=== PATIENT | male | born 1970 | race African-American/Black ===

== ENCOUNTER 2016-06-18 12:41 | Emergency (ER) | payer OTHER ==
--- NOTE | ~2016-06-18 | EKG ---
PATIENT: ROSENDA QUINONES UNIT #: [id number] Ventricular Rate: 88 BPM Atrial Rate: 88 BPM P-R Interval: 170 ms QRS Duration: 96 ms Q-T Interval: 364 ms QTC Calculation(Bezet): 440 ms P [place]: 71 degrees Calculated R [place]: 73 degrees Calculated T [place]: 31 degrees Diagnosis Line: Normal sinus rhythm Diagnosis Line: Moderate voltage criteria for LVH, may be normal Diagnosis Line: variant Diagnosis Line: Borderline ECG Diagnosis Line: When compared with ECG of 20-SEP-2014 22:29, Diagnosis Line: No significant change was found Diagnosis Line: Confirmed by NATALY PHILLIPS MD ([id number]) on Diagnosis Line: 06/18/2016 4:00:08 PM INTERPRETING MD: EARNEST
--- NOTE | ~2016-06-18 | CT16 ---
[facility] A Service of [facility] RADIOLOGY TEXT RESULTS PATIENT: ROSENDA QUINONES LOCATION: [facility] : 66 UNIT #: [id number] AGE: [address]: Matty Cho MD SEX: M ORDER DR: [id number] [facility] [address] [place], [place] [address] [id number] E MR#: [id number] Acc #: [id number] NAME: ROSENDA QUINONES : 1970 SEX: M STUDY DATE/TIME: 06/18/2016 14:41 UNIT: [facility] ROOM: STUDY DESCRIPTION: CT Angio Chest for PE Attending Physician: Matty Cho M.D. Ordering Physician: Matty Cho M.D. Primary Care Physician: [facility], [facility]. MEDICAL IMAGING REPORT This report is preliminary unless electronic signature is present EXAM CT angiogram chest, PE protocol dated 06/18/2016. COMPARISON CT angiogram chest, PE protocol dated 09/14/2014. HISTORY Sharp left lower rib pain with inhalation, started on 06/15/2016. FINDINGS This CT exam was performed with one or more of the following radiation dose reduction techniques: Automatic exposure control, adjustment of mA and/or kV according to patient size, and iterative reconstruction. CT angiogram chest PE protocol was obtained in the axial plane followed by sagittal and coronal reformats, as per the protocol. Three-vessel aortic arch is seen. No evidence of aortic aneurysm or dissection. The main, right-left pulmonary arteries and their segmental branches demonstrate no obvious filling defects to suggest pulmonary embolism. Heart is of normal size. No significant mediastinal lymphadenopathy. Dependent atelectatic changes are noted in the posterior aspect of bilateral lower lobes and along the anteroinferior aspect of the right upper lobe close to the right horizontal fissure. No lung mass, pleural effusion or pneumothorax is seen. Heart is of normal size. Spine is unremarkable. Imaged upper abdomen does not demonstrate any significant abnormality. There is a left axillary lymph node noted measuring 1.7 x 1.3 cm. It is slightly enlarged. It has become slightly larger when compared to the prior 1.2 x 1.1 cm from 09/14/2014. IMPRESSION 1. No evidence of pulmonary embolism or aortic aneurysm/dissection. 2. Mild scattered atelectatic benign changes are noted in the lungs bilaterally. [facility]. [facility] A Service of [facility] RADIOLOGY TEXT RESULTS PATIENT: ROSENDA QUINONES LOCATION: [facility] : 66 UNIT #: [id number] AGE: [address]: Matty Cho MD SEX: M ORDER DR: 3. There is an enlarged left axillary lymph node measuring about 1.7 x 1.3 cm. It is slightly larger when compared to the prior study from 2014. It is probably reactive. Visualized regions of the breasts and the chest did not demonstrate any significant acute abnormality in this modality. Dictated by... Miracle Conley M.D. THIS IS AN ELECTRONICALLY VERIFIED REPORT Miracle Conley M.D. at 06/19/2016 1:46 PM CPR/psc TD: 06/19/2016 01:06 JOB #: [id number] MEDICAL IMAGING REPORT Page 1 of 1 COPY
--- NOTE | ~2016-06-18 | CR72 ---
[facility] A Service of [facility] RADIOLOGY TEXT RESULTS PATIENT: ROSENDA QUINONES LOCATION: [facility] : 66 UNIT #: [id number] AGE: [address]: Matty Cho MD SEX: M ORDER DR: [id number] [facility] [address] [place], [place] [address] [id number] E MR#: [id number] Acc #: [id number] NAME: ROSENDA QUINONES : 1970 SEX: M STUDY DATE/TIME: 06/18/2016 13:09 UNIT: [facility] ROOM: STUDY DESCRIPTION: CR Chest Single View Portable Attending Physician: Matty Cho M.D. Ordering Physician: Matty Coh M.D. Primary Care Physician: [facility], [facility]. MEDICAL IMAGING REPORT This report is preliminary unless electronic signature is present EXAM Portable chest 06/18/2016 HISTORY Chest pain for 3 days. COMPARISON Chest 09/14/2014 FINDINGS Frontal chest demonstrates clear lungs. No pleural effusion or pneumothorax. Heart size and mediastinum are normal. Pulmonary vasculature normal. IMPRESSION No acute cardiopulmonary findings. Dictated by... Kyle Hardy M.D. THIS IS AN ELECTRONICALLY VERIFIED REPORT Kyle Hardy M.D. at 06/19/2016 8:45 AM JOSE CARLOS/marnie TD: 06/19/2016 00:07 JOB #: [id number] MEDICAL IMAGING REPORT Page 1 of 1 COPY
[~2016-06-18 12:41] MED LIST: ELIQUIS5 MG PO; NO MEDICATIONS; VIBRAMYCIN100 M1 PO
[2016-06-18 13:24] LABS: BASOPHIL% 0.8 % (0-2.5); EOSINOPHIL# 0.1 X10e3 (0-0.7); EOSINOPHIL% 2.7 % (0.0-7.0); HEMATOCRIT 45.6 % (38.0-50.0); HEMOGLOBIN 15.3 gm/dL (13.0-16.0); LYMPHOCYTE# 0.9 X10e3 (1.0-3.5); LYMPHOCYTE% 25.5 % (17.0-45.0); MEAN CELL VOLUME 95.7 FL (83-96); MEAN CORPUSCULAR HEMOGLOBIN 32.2 PG (28-34); MEAN CORPUSCULAR HGB CONC 33.6 g/dL (30-36); MEAN PLATELET VOLUME 8.5 FL (6.5-11.5); MONOCYTE# 0.4 X10e3 (0-1.0); MONOCYTE% 10.6 % (3.0-12.0); NEUTROPHIL# 2.2 X10e3 (1.5-7.1); NEUTROPHIL% 60.4 % (40-75); PLATELET COUNT 211 X10e3 (140-420); RED BLOOD COUNT 4.77 X10e (3.90-5.60); RED CELL DISTRIBUTION WIDTH 13.8 % (11.0-15.5); WHITE BLOOD COUNT 3.7 X10e3 (4.0-10.5)
[2016-06-18 13:25] LABS: DIFF IND NO
[2016-06-18 13:28] LABS: INR 0.9; PARTIAL THROMBOPLASTIN TIME 20.5 SECONDS (23.5-31.3); PROTHROMBIN TIME (PATIENT) 9.6 SECONDS (9.6-11.5)
[2016-06-18 13:54] LABS: ALBUMIN SERUM 3.8 g/dL (3.5-5.0); BILIRUBIN, DIRECT 0.1 mg/dL (0.0-0.2); BILIRUBIN,INDIRECT 0.3 mg/dL (0.0-0.9); BILIRUBIN,TOTAL 0.4 mg/dL (0.2-2.0); BUN/CREATININE RATIO 7.27; CALCIUM SERUM 8.9 mg/dL (8.4-10.2); CREATININE SERUM 1.1 mg/dL (0.6-1.4); GLOM FILT RATE Estimated 92.2 mL/min (>60); POTASSIUM 4.1 mmol/L (3.5-5.1); PROTEIN TOTAL SERUM 7.8 g/dL (6.0-8.3)
== END 2016-06-18 15:42 | disposition home or self-care (01) ==
LOC: CED 12:41
PROVIDERS: Emergency Medicine
DX: R07.81 Pleurodynia (principal); B02.9 Zoster without complications; F17.200 Nicotine dependence, unspecified, uncomplicated; Z79.899 Other long term (current) drug therapy
CPT/HCPCS: 36415; 71010; 71275; 80048; 80076; 83880; 85025; 85379; 85610; 85730; 93005; 96374; 96375; 99284; J1885; J2270; Q9967

== ENCOUNTER 2016-06-20 08:48 | Emergency (ER) | payer OTHER | END 2016-06-20 10:16 | disposition home or self-care (01) | LOC: CED 08:48 | DX: B02.9 Zoster without complications (principal); I10 Essential (primary) hypertension; F17.210 Nicotine dependence, cigarettes, uncomplicated | CPT/HCPCS: 96372; 99283; J2270 ==

== ENCOUNTER 2016-07-04 12:14 | Emergency (ER) | payer OTHER ==
--- NOTE | ~2016-07-04 | CT71 ---
[facility] A Service of [facility] RADIOLOGY TEXT RESULTS PATIENT: ROSENDA QUINONES LOCATION: [facility] : 66 UNIT #: [id number] AGE: [address]: Elbert Amaya MD SEX: M ORDER DR: [id number] [address] [place], [place] [address] [id number] E MR#: [id number] Acc #: [id number] NAME: ROSENDA QUINONES : 1970 SEX: M STUDY DATE/TIME: 07/04/2016 12:54 UNIT: [facility] ROOM: STUDY DESCRIPTION: CT Head Wo Contrast Attending Physician: Elbert Amaya M.D. Ordering Physician: Elbert Amaya M.D. Primary Care Physician: [facility], [facility]. MEDICAL IMAGING REPORT This report is preliminary unless electronic signature is present EXAM Unenhanced head CT 07/04/2016 PROCEDURE Axial unenhanced head CT. The CT exam was performed with one or more of the following radiation dose reduction techniques: automatic exposure control, adjustment of mA and/or kV according to patient size, and iterative reconstruction. COMPARISON: None CLINICAL HISTORY: Headache and primarily right-sided for 2 weeks. TECHNIQUE Axial noncontrast images were obtained from the skull base to the vertex. FINDINGS Ventricular size and configuration are normal. There is no evidence of acute infarct or hemorrhage. There are no extraaxial fluid collections. No mass lesion or mass effect is seen. There are no skull fractures. IMPRESSION Normal noncontrast head CT. Dictated by... Maximiliano Hood M.D. THIS IS AN ELECTRONICALLY VERIFIED REPORT Maximiliano Hood M.D. at 07/10/2016 10:[address] [facility] A Service of [facility] RADIOLOGY TEXT RESULTS PATIENT: ROSENDA QUINONES LOCATION: [facility] : 66 UNIT #: [id number] AGE: [address]: Elbert Amaya MD SEX: M ORDER DR: Stuart TD: 07/04/2016 13:47 JOB #: [id number] MEDICAL IMAGING REPORT Page 1 of 1 COPY
== END 2016-07-04 14:10 | disposition home or self-care (01) ==
LOC: CED 12:14
DX: R51 Headache (principal); I10 Essential (primary) hypertension; Z79.899 Other long term (current) drug therapy
CPT/HCPCS: 70450; 96374; 96375; 99284; J0780; J1100; J1200; J1885